=== PATIENT | female | born 1945 | race Caucasian/White ===

== ENCOUNTER → 2016-12-09 | Outpatient (CLI) | payer MEDICARE, BC ==
[~2016-12-09] MED LIST: AMLO10TA2 PO; CYCL1DRO OP; GADOBUTROL 7.5 MMOL/7.5 ML VIAL IV ONE; NABU500T PO; ROPI1TAB PO; SULF500T36 PO; VALS1TAB22 PO
--- NOTE | 2016-12-09 15:05 | KCIC ---
MRI of the lumbar spine without and with contrast 12/09/2016 CLINICAL HISTORY: Low back pain for the last 10 days post lifting injury. History of previous lumbar spine surgery. Technique: Unenhanced T1-weighted and T2-weighted sagittal and axial and inversion recovery sagittal images of the lumbar spine were obtained. After the intravenous administration of 7.5 cc of Gadavist, enhanced T1-weighted sagittal and axial images of the lumbar spine were obtained. FINDINGS: Minimal S-shaped curvature of the thoracolumbar spine is seen. Mild to moderate anterolisthesis of L4 in relation to L5 is noted. Degenerative signal changes are seen involving all of the disks of the lumbar spine. Degenerative signal changes are seen within the marrow surrounding these discs. Loss of height of the L3-4, L4-5 and L5-S1 discs is seen. The conus medullaris is normal morphology, position, and signal characteristics. At the L1-2 disc space there is a mild generalized disc bulge. Degenerative changes are seen involving the facet joints bilaterally. There is mild ligamentum flavum hypertrophy bilaterally. These findings when combined do not result in significant central spinal canal or neural foraminal stenosis. At the L2-3 disc space there is a mild generalized disc bulge. This is eccentric to the right. Degenerative changes are seen involving the facet joints bilaterally. There is mild to moderate ligamentum flavum hypertrophy bilaterally. These findings when combine result in mild central spinal canal stenosis. No neural foraminal stenosis is seen. At the L3-4 disc space there is a mild to moderate generalized disc bulge. Degenerative changes are seen involving the facet joints bilaterally. There is moderate ligamentum flavum hypertrophy bilaterally. There is prominence of the posterior epidural fat. These findings when combined result in mild to moderate central spinal canal stenosis. Mild, left greater than right neural foraminal stenosis is seen. At the L4-5 disc space there is a moderate generalized disc bulge. This is eccentric to the left. Degenerative changes are seen involving the facet joints bilaterally. There is moderate ligamentum flavum hypertrophy bilaterally. These findings when combined with the anterolisthesis at this level result in mild central spinal canal stenosis. Mild left greater than right neural foraminal stenosis is seen. At the L5-S1 disc space the patient is status post right hemilaminotomy. There is a mild generalized disc bulge. Degenerative changes are seen involving the facet joints bilaterally. These findings do not result in significant central spinal canal or neural foraminal stenosis. IMPRESSION: 1. Post right hemilaminotomy at L5-S1. 2. The changes of degenerative disc disease are seen throughout the lumbar spine. These findings result in mild central spinal canal stenosis at L2-3 and L4-5. Mild to moderate central spinal canal stenosis is seen at L3-4. Mild left greater than right neural foraminal stenosis is seen at L3-4 and L4-5. Electronically signed by: Leonel Pryor MD (12/09/2016 3:01 PM) [facility]-[id number]
== END | disposition home or self-care (01) ==
LOC: KCIC MRI 12:05
PROVIDERS: ATTEND Family Medicine
DX: M48.061 Spinal stenosis, lumbar region without neurogenic claudication (principal); M51.36 Other intervertebral disc degeneration, lumbar region
CPT/HCPCS: 72158; 82565; A9585

== ENCOUNTER → 2016-12-17 | Outpatient (CLI) | payer MEDICARE, BC ==
[~2016-12-17] MED LIST changes: -GADOBUTROL 7.5 MMOL/7.5 ML VIAL IV ONE
--- NOTE | 2016-12-17 15:46 | KCIC ---
EXAM: Lumbar spine, flexion and extension views. HISTORY: Spondylolisthesis. Right lower extremity radiculopathy. COMPARISON: MRI dated 12/09/2016. FINDINGS: There is grade 1 anterolisthesis of L4 on L5 which measures 10 mm in neutral position increases to grade 2 anterolisthesis measuring 13 mm with flexion and does not change with extension. No additional significant listhesis or abnormal translation or motion is seen. There is degenerative endplate remodeling with disc space narrowing and osteophytosis primarily at L3-L4 and L5-S1. IMPRESSION: 1. Grade 1 anterolisthesis of L4 on L5 which increases to grade 2 anterolisthesis with flexion. 2. Degenerative change primarily at L3-L4 and L5-S1. Electronically signed by: Krysten Verma MD (12/17/2016 3:43 PM) [facility]-KCIC1
== END | disposition home or self-care (01) ==
LOC: KCIC 15:09
PROVIDERS: ATTEND Neurological Surgery
DX: M43.16 Spondylolisthesis, lumbar region (principal); M51.16 Intervertebral disc disorders with radiculopathy, lumbar region
CPT/HCPCS: 72100

== ENCOUNTER → 2016-12-20 | Outpatient (CLI) | payer MEDICARE, BC ==
--- NOTE | 2016-12-20 15:22 | KCIC ---
Bone Densitometry History: Postmenopausal. Findings: Bone Densitometry was performed with dual photon absorption of the lumbar spine and left proximal femur. Lumbar Spine: Bone density is 1.092 g/cm2 for L1-L4. T-score is 0.4. Z-score is 2.6. Left total femur: Bone density is 0.836 g/cm2. T-score is -0.9. Z-score is 0.7. IMPRESSION: Bone mineral densities of the lumbar spine and left femur are normal. World Health Organization definition of osteoporosis and osteopenia for women: normal equals T score at or above -1.0 standard deviations; osteopenia equals T score between -1.0 and -2.5 standard deviations; osteoporosis equals T score at or below -2.5 standard deviations. Electronically signed by: Sukumar Vargas MD (12/20/2016 3:19 PM) [id number]
--- NOTE | 2016-12-30 15:01 | KCIC ---
DATE: December 20, 2016 EXAM: MAMMO JOANNE SCREENING BILATERAL HISTORY: Screening study. COMPARISON: December 15, 2015 performed at [facility]. This study was interpreted with the benefit of Computerized Aided Detection (CAD). 2-D digital mammographic views of both breasts were performed in the CC and MLO projections. 3-D digital tomosynthesis of both breasts were performed in the CC and MLO projections and reviewed on a computer workstation. FINDINGS: The breast parenchyma is scattered and mildly dense. There is a small 3 mm nodule within the retroareolar region of the left breast at the 4:00 position. Recommend sonography of the lower outer quadrant of left breast. There are no dominant masses, suspicious microcalcifications or evidence of architectural distortion. IMPRESSION: Nodule of the left breast. Sonography is recommended. BI-RADS CATEGORY: 0 INCOMPLETE: NEEDS ADDITIONAL IMAGING EVALUATION AND/OR PRIOR MAMMOGRAMS FOR COMPARISON. RECOMMENDED FOLLOW-UP: ADD ADDITIONAL IMAGING PQRS compliance statement: Patient information was entered into a reminder system with a target due date now for the next imaging study. Mammography is a sensitive method for finding small breast cancers, but it does not detect them all and is not a substitute for careful clinical examination. A negative mammogram does not negate a clinically suspicious finding and should not result in delay in biopsying a clinically suspicious abnormality. "Our facility is accredited by the [employer] Mammography Program." The patient's breast density may affect the ability of mammography to detect breast cancer. There are 4 categories of breast density, A, B, C and D. Breast density A means that most of the breast tissue is replaced with adipose tissue and therefore is not dense. Breast density B means that the breast tissue is mildly dense and scattered. Breast density C means that the breast tissue is heterogeneously dense. Breast density D means that the breast tissue is very dense. Breast densities especially C and D may decrease the sensitivity of mammography to detect breast cancer. Therefore, the patient may benefit from 3-D breast mammography (3D breast tomography) as a part of their screening mammogram. Insurance may or may not pay for this additional imaging. The patient's breast density based on today's mammogram is category B.
== END | disposition home or self-care (01) ==
LOC: KCIC MAMMO 13:40
PROVIDERS: ATTEND Family Medicine
DX: Z78.0 Asymptomatic menopausal state (principal); Z12.31 Encounter for screening mammogram for malignant neoplasm of breast
CPT/HCPCS: 77063; 77080; G0202; 77067

== ENCOUNTER → 2017-01-02 | Outpatient (CLI) | payer MEDICARE, BC ==
--- NOTE | 2017-01-02 11:20 | RAD ---
EXAM: Left breast ultrasound. HISTORY: Nodule on mammographic screening. Sonography is requested. COMPARISON: 12/20/2016, 12/10/2015. FINDINGS: Sonographic evaluation of the left periareolar inferior breast was performed at the site of mammographic concern. There is no suspicious sonographic finding. There is no correlate for the small mammographic nodule. A stable correlate is suspected on the prior mammogram. IMPRESSION: 1. BI-RADS Category 3: Probably benign findings. 2. Recommend 6 month follow-up left diagnostic mammography to confirm stability of a small left lateral periareolar nodule without sonographic correlate.
== END | disposition home or self-care (01) ==
LOC: KCIC US 10:30
PROVIDERS: ATTEND Family Medicine
DX: R92.8 Other abnormal and inconclusive findings on diagnostic imaging of breast (principal)
CPT/HCPCS: 76641

== ENCOUNTER → 2017-01-27 | Outpatient (CLI) | payer MEDICARE, BC ==
[~2017-01-27] MED LIST changes: +ASPI-482 PO; +CALC600T4 PO; +DIPH50CA59 PO; +DOCU-109 PO; +GUAI600T47 PO; +MULT-245 PO; +OMEG1CAP38 PO; +OXYC1TAB7 PO; +POLY119P4 PO
[2017-01-27 14:57] LABS: BASO % 1 % (0-3); EOS % 3 % (0-3); HEMOGLOBIN 12.1 g/dL (12.0-15.5); LYMPH # 1.3 x10^3/uL (1.0-4.8); LYMPH % 24 % (24-48); MEAN CORPUSCULAR HEMOGLOBIN 29 pg (25-35); MEAN CORPUSCULAR HGB CONC 33 g/dL (31-37); MEAN CORPUSCULAR VOLUME 87 fL (79-100); MONO % 11 % (0-9); NEUT % 62 % (31-73); PLATELET COUNT 312 x10^3/uL (140-400); RED BLOOD COUNT 4.26 x10^6/uL (3.50-5.40); RED CELL DISTRIBUTION WIDTH 13.4 % (11.5-14.5); WHITE BLOOD COUNT 5.3 x10^3/uL (4.0-11.0)
[2017-01-27 15:08] LABS: PROTHROMBIN TIME PATIENT 12.7 SEC (11.7-14.0)
[2017-01-27 15:22] LABS: ALBUMIN 3.8 g/dL (3.4-5.0); ALBUMIN/GLOBULIN RATIO 1.2 (1.0-1.7); CALCIUM 9.2 mg/dL (8.5-10.1); CREATININE 0.9 mg/dL (0.6-1.0); GFR 61.9; POTASSIUM 3.3 mmol/L (3.5-5.1); TOTAL BILIRUBIN 0.5 mg/dL (0.2-1.0); TOTAL PROTEIN 7.1 g/dL (6.4-8.2)
--- NOTE | 2017-01-27 15:26 | EKG ---
[facility] [address] [place] [address] Test Date: 2017-01-27 Test Time: 15:25:23 Pat Name: SANDIP ALLRED Department: Room: Gender: F Skein Yarn Dyer: : 1945 Requested By: DANELLE FORBES Order Number: [id number] Reading MD: Samuel Rojas MD Measurements Intervals [place] Rate: 69 P: 31 NC: 212 QRS: 33 QRSD: 82 T: 16 QT: 396 QTc: 426 Interpretive Statements SINUS RHYTHM Electronically Signed On 01-28-2017 15:13:58 [employer] by Samuel Rojas MD
== END | disposition home or self-care (01) ==
LOC: SURGPAT 14:21
PROVIDERS: ATTEND Neurological Surgery
DX: Z01.818 Encounter for other preprocedural examination (principal); M43.16 Spondylolisthesis, lumbar region; M48.062 Spinal stenosis, lumbar region with neurogenic claudication
CPT/HCPCS: 36415; 80053; 85025; 85610; 85730; 87641; 93005

== ENCOUNTER 2017-02-03 08:01 | Inpatient (IN) | payer MEDICARE, BC ==
--- NOTE | 2017-01-31 15:10 | PREOP HP ---
DATE OF SERVICE: 02/03/2017 HISTORY OF PRESENT ILLNESS: The patient is a pleasant 71-year-old woman who is having difficulty with low back pain and pain which radiates into her right leg. That pain can be in the anterior, lateral, posterior leg. She notes numbness and tingling in the toes of her right foot. When she walks, she feels there is heaviness in her right leg and foot. The problem started on 11/28/2016 after lifting grocery bags. She rates her pain as a 5/10. Walking increases her pain. The problem is worse in the evenings. She is taking nabumetone. When I saw her last, there was dorsiflexion and weakness on the right side. I studied her with flexion, extension views on which there was motion. Because of this, I had lumbar myelogram and post-myelogram CT scan performed in flexion and extension views. PAST MEDICAL HISTORY: Hypertension, psychiatric care and RA. PAST SURGICAL HISTORY: Lumbar surgery by [facility] in 1997. FAMILY HISTORY: Adopted. No known history. SOCIAL HISTORY: Retired. . Exercise daily. Denies substance abuse. Denies tobacco use. Drinks coffee daily. ALLERGIES: No known drug allergies. CURRENT MEDICATIONS: Valsartan, amlodipine, , nabumetone, ropinirole, Restasis, aspirin, calcium, multivitamin, omega 3, MiraLax, , Claritin. REVIEW OF SYSTEMS: A 12-point review of systems was obtained and noncontributory except that mentioned above. PHYSICAL EXAMINATION: NEUROSURGERY EXAMINATION: GENERAL APPEARANCE: Alert, pleasant, in no acute distress. HEAD: Normocephalic and atraumatic. SKIN: Warm and dry. MUSCULOSKELETAL: Lumbar paraspinal muscle bulk is normal, restricted range of motion of lumbar spine, [id number] tenderness of the lower lumbar spine with palpation, normal range of motion of the lower extremities bilaterally. EXTREMITIES: No clubbing, cyanosis or edema. NEUROLOGIC: Alert and oriented x 3, normal recent and remote memory. Strength 5/5 in bilateral lower extremities except for 4+/5 right foot dorsiflexion and right EHL, sensory was intact to light touch in bilateral lower extremities except for decreased across the dorsum of her right foot, reflexes were present and symmetric in lower extremities bilaterally, negative straight leg raising bilaterally. IMAGING REVIEWED: I reviewed the lumbar myelogram and post-myelogram CT scan. On that study, there was a sacralized L5-S1. There was a grade 1 anterolisthesis at L4-L5 level, exaggerated in flexion and associated with bilateral L5 nerve root truncation and swelling. There is also evidence of nerve root swelling at L3-L4 involving the L4 roots. Seen on the CT portion, there was a grade 1 anterolisthesis at a true L4-L5 level which is associated with central spinal and lateral recess and foraminal stenosis. There is also moderately severe central spinal and bilateral foraminal stenosis at L3-L4. ASSESSMENT: 1. Spondylolisthesis, lumbar region. 2. Spinal stenosis, lumbar region with neurogenic claudication. PLAN: She has severe as well as right foot dorsiflexion weakness. There is motion at L4-L5 on imaging studies as well as a significant stenosis at that level and as well at L3-L4. I recommended a right-sided microdecompression L3-L4 combined with a decompression L4-L5 and an instrumented lumbar fusion. I would also perform an anterior diskectomy and interbody fusion at that level. I discussed surgery with her. We spoke about the surgery rationale, technique, risks, and expected postoperative course. She understands. She would like to go ahead. We will make the arrangements. DANELLE FORBES MD DR: SOLO/ada JOB#: [id number] / [id number]
[~2017-02-03] VITALS: Ht 172.7 cm; Wt 84.8 kg
[2017-02-03] VITALS (8 sets, daily range): BP systolic 97–142; BP diastolic 54–72
[~2017-02-03 08:01] MED LIST changes: +BUPIVAC MPF-EPI 0.5%-1:200000 30 ML VIAL. ONE; -DOCU-109 PO; +GELATIN SPONGE SIZE 100. ONE; -GUAI600T47 PO; +IV RINGERS,LACTATED 1000ML 1,000 ML IV SCH; +KETOROLAC 60 MG/2 ML INJ FOR OR. ONE; +LIDOCAINE 1% PF 2 ML VIAL. ID PRN; +ONDANSETRON PF 4 MG/2 ML VIAL. IV PRN; -OXYC1TAB7 PO; +PROCHLORPERAZINE 10 MG/2 ML VIAL. IV PRN; +THROMBIN TOPICAL 20,000 UNIT SPRAY.SYRN KIT TP ONE; +fentaNYL PF VIAL 100 MCG/2 ML VIAL IV PRN
[2017-02-03] MEDS ORDERED: GUAI600T47 PO (08:42)
[2017-02-03] MEDS ORDERED: PHENYLEPHRINE in 0.9% NACL PF 1 MG/10 ML DISP.SYRIN. IV ONE (10:37)
[2017-02-03] MEDS ORDERED: fentaNYL PF VIAL 100 MCG/2 ML VIAL ONE ×2 (10:38→16:53)
[2017-02-03] MEDS ORDERED: MIDAZOLAM HCL/PF 2 MG/2 ML VIAL. ONE (10:38)
[2017-02-03] MEDS ORDERED: ePHEDrine PF IN SALINE 50 MG/5 ML DISP.SYRIN IV ONE (10:38)
[2017-02-03] MEDS ORDERED: ROCURONIUM 50 MG/5 ML VIAL. ONE (10:39)
[2017-02-03] MEDS ORDERED: DEXAMETHASONE SOD PHOS 20 MG/5 ML VIAL. ONE (10:39)
[2017-02-03] MEDS ORDERED: PROPOFOL 50 ML IV ONE ×2 (10:39→16:53)
[2017-02-03] MEDS ORDERED: REMIFENTANIL 2 MG VIAL. IV ONE ×2 (10:39→15:21)
[2017-02-03] MEDS ORDERED: ONDANSETRON PF 4 MG/2 ML VIAL. ONE (10:39)
[2017-02-03] MEDS ORDERED: PROPOFOL 20 ML IV ONE (10:39)
[2017-02-03] MEDS ORDERED: PROPOFOL 100 ML IV ONE (10:40)
[2017-02-03] MEDS: BACITRACIN 50,000 UNIT in IV NORMAL SALINE 1000ML BAG 1,000 ML IRR ONE ×2 (11:49→13:16)
[2017-02-03] MEDS ORDERED: NEOSTIGMINE METHYLSULFATE 5 MG/5 ML SYRINGE. ONE (12:27)
[2017-02-03] MEDS ORDERED: GLYCOPYRROLATE 1 MG/5 ML VIAL. ONE (12:27)
[2017-02-03] MEDS ORDERED: DESFLURANE > 120 MINUTES IH ONE (12:36)
[2017-02-03] MEDS ORDERED: PHENYLEPHRINE 10 MG/ML VIAL. ONE (12:40)
[2017-02-03] MEDS ORDERED: oxyCODONE/APAP 5/325 1 TAB TABLET PO PRN (16:45)
[2017-02-03] MEDS ORDERED: fentaNYL PF VIAL 100 MCG/2 ML VIAL IV PRN ×2 (16:45)
[2017-02-03] MEDS ORDERED: 0.9 % SODIUM CHLORIDE 10 ML DISP.SYRIN. IV PRN (16:45)
[2017-02-03] MEDS ORDERED: CALCIUM CARBONATE 500 MG TAB.CHEW PO PRN (16:45)
[2017-02-03] MEDS ORDERED: diphenhydrAMINE 50 MG/ML VIAL IV PRN (16:45)
[2017-02-03] MEDS ORDERED: diphenhydrAMINE HCL 25 MG CAPSULE PO PRN (16:45)
[2017-02-03] MEDS ORDERED: ONDANSETRON PF 4 MG/2 ML VIAL. IV PRN (16:45)
[2017-02-03] MEDS ORDERED: MAGNESIUM HYDROXIDE 2,400 MG/30 ML ORAL.SUSP. PO PRN (16:45)
[2017-02-03] MEDS ORDERED: ACETAMINOPHEN 325 MG TABLET. PO PRN (16:45)
[2017-02-03] MEDS ORDERED: MAG HYDROX/ALUMINUM HYD/SIMETH 30 ML ORAL.SUSP PO PRN (16:45)
[2017-02-03] MEDS ORDERED: POTASSIUM CL 20MEQ D5-0.45NACL 1,000 ML IV SCH (18:00)
[2017-02-03] MEDS: MORPHINE SULFATE 2 MG/ML DISP.SYRIN. IV PRN ×2 (18:20→18:44)
[2017-02-03] MEDS: fentaNYL PF VIAL 100 MCG/2 ML VIAL IV PRN ×2 (18:32→18:55)
[2017-02-03] MEDS: HYDROmorphone 2 MG/ML VIAL IV PRN ×4 (19:00→19:31)
[2017-02-03] MEDS: DOCUSATE SODIUM 100 MG CAPSULE. PO SCH (21:25)
[2017-02-03] MEDS: rOPINIRole 1 MG TABLET. PO SCH (21:25)
[2017-02-03] MEDS: diphenhydrAMINE HCL 25 MG CAPSULE PO SCH (21:25)
[2017-02-03] MEDS: METHOCARBAMOL 750 MG TABLET PO SCH (21:25)
[2017-02-03] MEDS: oxyCODONE/APAP 5/325 1 TAB TABLET PO PRN (21:36)
[2017-02-03] MEDS ORDERED: ceFAZolin SODIUM 1 GM in IV DEXTROSE 5% 50 ML IV SCH (22:00)
[2017-02-04] MEDS: ceFAZolin SODIUM IV Push 1 GM VIAL. IVP SCH ×3 (01:19→18:09)
[2017-02-04] MEDS: oxyCODONE/APAP 5/325 1 TAB TABLET PO PRN ×4 (02:46→19:54)
[2017-02-04 03:00] VITALS: BP 119/53
[2017-02-04 07:28] VITALS: BP 113/63
[2017-02-04] MEDS: MULTIVITAMIN with MINERAL TABLET. PO SCH (08:35)
[2017-02-04] MEDS: rOPINIRole 1 MG TABLET. PO SCH ×3 (08:35→19:52)
[2017-02-04] MEDS: OMEGA-3 FATTY ACIDS/FISH OIL 1,000 MG CAPSULE. PO SCH (08:35)
[2017-02-04] MEDS: METHOCARBAMOL 750 MG TABLET PO SCH (08:35)
[2017-02-04] MEDS: CALCIUM CARBONATE 500 MG TABLET PO SCH ×3 (08:36→18:08)
[2017-02-04] MEDS: DOCUSATE SODIUM 100 MG CAPSULE. PO SCH ×2 (08:36→21:11)
[2017-02-04] MEDS: ASPIRIN ENTERIC COATED 81 MG TABLET.DR. PO SCH (08:36)
[2017-02-04] MEDS: cycloSPORINE 0.05% OPTH 1 DROP DROPERETTE OU SCH (08:47)
[2017-02-04] MEDS: amLODIPine BESYLATE 10 MG TABLET PO SCH (09:00)
--- NOTE | 2017-02-04 10:10 | PDOC ---
PROGRESS NOTES Subjective Subjective POD #1 up in chair leg pain improved back/ incisional pain controlled with medication has ambulated in lindsay with RN Objective Objective Vital Signs Date Time Temp Pulse Resp B/P (MAP) Pulse Ox O2 Delivery O2 Flow Rate FiO2 02/04/17 08:05 Room Air 02/04/17 07:28 97.5 78 18 113/63 (80) 98 97.5 02/03/17 22:45 2.0 Intake and Output 02/04/17 07:00 Intake Total 2490 ml Output Total 400 ml Balance 2090 ml Intake Oral 440 ml IV Total 2050 ml Output Urine Total 300 ml Estimated Blood Loss 100 ml Physical Exam General: Alert, Oriented X3, Cooperative MUSCULOSKELETAL: Other (CABEZAS) Skin: Other (dressing Dry,Intact , flat) Plan Plan of Care encouraged increased activity as tolerated PT Brace ordered possible dc later today Comment Review of Relevant I have reviewed the following items travis (where applicable) has been applied. Medications Current Medications Ondansetron HCl (Zofran) 4 mg PRN Q6HRS PRN IV NAUSEA/VOMITING; Start at 07:00; Stop 02/04/17 at 06:59; Status DC Fentanyl Citrate (Fentanyl 2ml Vial) 25 mcg PRN Q5MIN PRN IV MILD PAIN; Start 02/03/17 at 07:00; Stop 02/04/17 at 06:59; Status DC Fentanyl Citrate (Fentanyl 2ml Vial) 50 mcg PRN Q5MIN PRN IV MODERATE PAIN Last administered on 02/03/17 18:55; Start 02/03/17 at 07:00; Stop 02/04/17 at 06:59; Status DC Morphine Sulfate 1 mg PRN Q10MIN PRN IV SEVERE PAIN Last administered on 18:44; Start 02/03/17 at 07:00; Stop 02/04/17 at 06:59; Status DC Ringer's Solution 1,000 ml @ 0 mls/hr Q0M IV Last administered on 02/03/17 08:54; Start 02/03/17 at 07:00; Stop 02/03/17 at 18:59; Status DC Lidocaine HCl (Xylocaine-Mpf 1% Vial) 2 ml PRN 1X PRN ID PRIOR TO IV START; Start 02/03/17 at 07:00; Stop 02/04/17 at 06:59; Status DC Hydromorphone HCl (Dilaudid) 0.5 mg PRN Q10MIN PRN IV SEV PAIN, Second choice Last administered on 02/03/17 19:21; Start 02/03/17 at 07:00; Stop 02/04/17 at 06:59; Status DC Prochlorperazine Edisylate (Compazine) 5 mg PACU PRN PRN IV NAUSEA, MRX1 Last administered on 02/03/17 18:32; Start 02/03/17 at 07:00; Stop 02/04/17 at 06 :59; Status DC Bacitracin 46995 unit/Sodium Chloride 1,000 ml @ 1,000 mls/hr 1X PERIOP ONCE IRR Last administered on 02/03/17 13:16; Start 02/03/17 at 08:00; Stop 01/10 at 08:59; Status DC Cefazolin Sodium/ Dextrose 50 ml @ 100 mls/hr 1X PREOP PRN IV PRIOR TO SURGERY Last administered on 02/03/17 16:30; Start 02/03/17 at 08:00; Stop 02/03/17 at 19:53; Status DC Gelatin (Gelfoam Size 100) 1 each STK-MED ONCE .ROUTE Last administered on 13:16; Start 02/03/17 at 07:04; Stop 02/03/17 at 07:05; Status DC Bupivacaine HCl/ Epinephrine Bitart (Sensorcain-Mpf Epi 0.5%-1:170901) 30 ml STK -MED ONCE .ROUTE Last administered on 02/03/17 13:16; Start 02/03/17 at 07: 04; Stop 02/03/17 at 07:05; Status DC Ketorolac Tromethamine (Toradol For Or Only) 60 mg STK-MED ONCE .ROUTE Last administered on 02/03/17 13:16; Start 02/03/17 at 07:04; Stop 02/03/17 at 07 :05; Status DC Thrombin 20,000 unit STK-MED ONCE TP Last administered on 02/03/17 13:16; Start 02/03/17 at 07:04; Stop 02/03/17 at 07:05; Status DC Phenylephrine HCl 1 mg STK-MED ONCE IV ; Start 02/03/17 at 10:37; Stop at 10:38; Status DC Ephedrine Sulfate (ePHEDrine PF IN SALINE SYRINGE) 50 mg STK-MED ONCE IV ; Start 02/03/17 at 10:38; Stop 02/03/17 at 10:39; Status DC Midazolam HCl (Versed) 2 mg STK-MED ONCE .ROUTE ; Start 02/03/17 at 10:38; Stop 02/03/17 at 10:39; Status DC Fentanyl Citrate (Fentanyl 2ml Vial) 100 mcg STK-MED ONCE .ROUTE ; Start at 10:38; Stop 02/03/17 at 10:39; Status DC Propofol 20 ml @ As Directed STK-MED ONCE IV ; Start 02/03/17 at 10:39; Stop 02/03/17 at 10:40; Status DC Propofol 50 ml @ As Directed STK-MED ONCE IV ; Start 02/03/17 at 10:39; Stop 02/03/17 at 10:40; Status DC Dexamethasone Sodium Phosphate (Decadron) 20 mg STK-MED ONCE .ROUTE ; Start 01/10 at 10:39; Stop 02/03/17 at 10:40; Status DC Ondansetron HCl (Zofran) 4 mg STK-MED ONCE .ROUTE ; Start 02/03/17 at 10:39; Stop 02/03/17 at 10:40; Status DC Remifentanil HCl (Ultiva) 2 mg STK-MED ONCE IV ; Start 02/03/17 at 10:39; Stop 02/03/17 at 10:40; Status DC Rocuronium [place] (Zemuron) 50 mg STK-MED ONCE .ROUTE ; Start 02/03/17 at 10: 39; Stop 02/03/17 at 10:40; Status DC Propofol 100 ml @ As Directed STK-MED ONCE IV ; Start 02/03/17 at 10:40; Stop 02/03/17 at 10:41; Status DC Neostigmine Methylsulfate 5 mg STK-MED ONCE .ROUTE ; Start 02/03/17 at 12:27; Stop 02/03/17 at 12:28; Status DC Glycopyrrolate (Robinul) 1 mg STK-MED ONCE .ROUTE ; Start 02/03/17 at 12:27; Stop 02/03/17 at 12:28; Status DC Desflurane (Suprane) 90 ml STK-MED ONCE IH ; Start 02/03/17 at 12:36; Stop 01/10 at 12:37; Status DC Phenylephrine HCl (Mario-Synephrine Inj) 10 mg STK-MED ONCE .ROUTE ; Start at 12:40; Stop 02/03/17 at 12:41; Status DC Remifentanil HCl (Ultiva) 2 mg STK-MED ONCE IV ; Start 02/03/17 at 15:21; Stop 02/03/17 at 15:22; Status DC Cefazolin Sodium/ Dextrose 50 ml @ As Directed STK-MED ONCE IV ; Start at 15:53; Stop 02/03/17 at 15:54; Status DC Amlodipine Besylate (Norvasc) 10 mg DAILY PO ; Start 02/04/17 at 09:00 Aspirin (Ecotrin) 81 mg DAILY PO Last administered on 02/04/17 08:36; Start 02/04/17 at 09:00 Cyclosporine (Restasis) 0.05 drop DAILY OU Last administered on 02/04/17 08: 47; Start 02/04/17 at 09:00 Guaifenesin (Mucinex) 1,200 mg BID PO Last administered on 02/04/17 08:36; Start 02/03/17 at 21:00 Polyethylene Glycol (miraLAX PACKET) 17 gm DAILY PO ; Start 02/04/17 at 09:00 Ropinirole HCl (Requip) 1 mg TID PO Last administered on 02/04/17 08:35; Start 02/03/17 at 21:00 Calcium Carbonate/ Glycine (Oscal) 500 mg TIDWMEALS PO Last administered on 08:36; Start 02/04/17 at 08:00 Diphenhydramine HCl (Benadryl) 50 mg QHS PO Last administered on 02/03/17 21: 25; Start 02/03/17 at 21:00 Multivitamins (Thera M Plus) 1 tab DAILY PO Last administered on 02/04/17 08: 35; Start 02/04/17 at 09:00 Fish Oil (Fish Oil) 1,000 mg DAILY PO Last administered on 02/04/17 08:35; Start 02/04/17 at 09:00 Fentanyl Citrate (Fentanyl 2ml Vial) 50 mcg PRN Q2HR PRN IV PAIN; Start at 16:45 Fentanyl Citrate (Fentanyl 2ml Vial) 25 mcg PRN Q2HR PRN IV PAIN; Start at 16:45 Acetaminophen (Tylenol) 650 mg PRN Q6HRS PRN PO MILD PAIN / TEMP; Start at 16:45 Al Hydroxide/Mg Hydroxide (Mylanta Plus Xs) 30 ml PRN Q3HRS PRN PO HEARTBURN / GAS; Start 02/03/17 at 16:45 Calcium Carbonate/ Glycine (Tums) 500 mg PRN Q3HRS PRN PO INDIGESTION; Start 02/03/17 at 16:45 Diphenhydramine HCl (Benadryl) 25 mg PRN Q6HRS PRN PO ITCHING; Start 02/03/17 at 16:45 Diphenhydramine HCl (Benadryl) 25 mg PRN Q6HRS PRN IV ITCHING; Start 02/03/17 at 16:45 Sodium Chloride (Normal Saline Flush) 3 ml QSHIFT PRN IV AFTER MEDS AND BLOOD DRAWS; Start 02/03/17 at 16:45 Potassium Chloride/Dextrose/ Sod Cl 1,000 ml @ 75 mls/hr [id number] IV Last administered on 02/04/17 03:13; Start 02/03/17 at 18:00 Oxycodone/ Acetaminophen (Percocet 5/325) 1 tab PRN Q4HRS PRN PO MILD PAIN, 1ST CHOICE Last administered on 02/04/17 04:07; Start 02/03/17 at 16:45 Oxycodone/ Acetaminophen (Percocet 5/325) 2 tab PRN Q4HRS PRN PO MODERATE PAIN , SEVERE PAIN; Start 02/03/17 at 16:45 Methocarbamol (Robaxin) 750 mg TID PO Last administered on 02/04/17 08:35; Start 02/03/17 at 21:00; Stop 02/04/17 at 09:28; Status DC Docusate Sodium (Colace) 100 mg BID PO Last administered on 02/04/17 08:36; Start 02/03/17 at 21:00 Magnesium Hydroxide (Milk Of Magnesia) 2,400 mg PRN Q12HR PRN PO CONSTIPATION; Start 02/03/17 at 16:45 Ondansetron HCl (Zofran) 4 mg PRN Q6HRS PRN IV NAUESA, 1ST CHOICE; Start 02/03 at 16:45 Cefazolin Sodium 1 gm/Dextrose 50 ml @ 100 mls/hr Q8HRS IV ; Start 02/03/17 at 22:00; Stop 02/04/17 at 14:29; Status UNV Fentanyl Citrate (Fentanyl 2ml Vial) 100 mcg STK-MED ONCE .ROUTE ; Start at 16:53; Stop 02/03/17 at 16:54; Status DC Propofol 50 ml @ As Directed STK-MED ONCE IV ; Start 02/03/17 at 16:53; Stop 02/03/17 at 16:54; Status DC Cefazolin Sodium (Ancef) 1 gm Q8H IVP Last administered on 02/04/17 08:36; Start 02/04/17 at 00:00; Stop 02/04/17 at 16:01 Active Scripts Active Reported Mucinex (Guaifenesin) 600 Mg Tablet.er 2 Tab PO BID Unisom (Diphenhydramine Hcl) 50 Mg Capsule 50 Mg PO HS Miralax (Polyethylene Glycol 3350) 119 Gm Powder 1 Tbs PO DAILY [place] 3 Fish Oil Softgel ([place]-3 Fatty Acids/Fish Oil) 1 Each Capsule.dr 1 Each PO DAILY Multi Vitamin Daily (Multivitamin) 1 Each Tablet 1 Each PO DAILY Calcium (Calcium Carbonate) 600 Mg Tablet 600 Mg PO TID Aspir 81 (Aspirin) 81 Mg Tablet. 81 Mg PO DAILY Restasis (Cyclosporine) 1 Each Droperette 1 Each OP Requip (Ropinirole Hcl) 1 Mg Tablet 1 Mg PO TID Nabumetone 500 Mg Tablet Unknown Dose PO DAILY Sulfasalazine (Sulfasalazine) 500 Mg Tablet. 500 Mg PO Amlodipine Besylate 10 Mg Tablet 10 Mg PO DAILY Diovan Hct 320-25 Mg Tablet (Valsartan/Hydrochlorothiazide) 1 Each Tablet Unknown Dose PO DAILY Vitals/I & O Vital Sign - Last 24 Hours 02/03/17 02/03/17 02/03/1717 18:03 18:03 18:18 18:20 Temp 97.6 97.6 Pulse 95 82 Resp 18 14 14 B/P (MAP) 141/63 127/55 Pulse Ox 100 100 O2 Delivery Simple Mask Mask Simple Mask Room Air O2 Flow Rate 10 10 10 02/03/17 02/03/17 02/03/17 02/03/17 18:32 18:33 18:44 18:48 Pulse 90 73 Resp 14 14 14 12 B/P (MAP) 127/55 123/58 Pulse Ox 100 100 O2 Delivery Simple Mask Room Air O2 Flow Rate 10 02/03/17 02/03/17 02/03/17 02/03/17 18:55 19:00 19:03 19:12 Temp 97.6 97.6 Pulse 75 Resp 14 14 12 12 B/P (MAP) 115/54 Pulse Ox 95 O2 Delivery Nasal Cannula O2 Flow Rate 2 02/03/17 02/03/17 02/03/17 02/03/17 19:18 19:21 19:31 19:40 Temp 97.6 97.5 97.6 97.5 Pulse 80 88 Resp 14 14 14 18 B/P (MAP) 120/56 98/54 (69) Pulse Ox 94 96 O2 Delivery Nasal Cannula O2 Flow Rate 2.0 02/03/17 02/03/17 02/03/17 02/03/17 19:40 19:40 19:55 20:10 Temp 97.5 97.5 Pulse 99 80 85 Resp 18 16 B/P (MAP) 98/54 (69) 97/56 (70) 113/56 (75) Pulse Ox 96 89 90 O2 Delivery Nasal Cannula Nasal Cannula Nasal Cannula Nasal Cannula O2 Flow Rate 2.0 2.0 2.0 2.0 02/03/17 02/03/17 02/03/17 02/03/17 20:25 20:55 21:25 21:36 Pulse 75 82 83 Resp 18 B/P (MAP) 104/63 (77) 133/65 (87) 142/65 (90) Pulse Ox 90 91 90 94 O2 Delivery Nasal Cannula Nasal Cannula Nasal Cannula Nasal Cannula O2 Flow Rate 2.0 2.0 2.0 2.0 02/03/17 02/03/17 02/03/17 02/04/17 21:55 22:35 22:45 02:46 Pulse 89 72 Resp 18 18 B/P (MAP) 125/65 (85) 112/72 (85) Pulse Ox 90 98 96 O2 Delivery Nasal Cannula Nasal Cannula Room Air O2 Flow Rate 2.0 2.0 2.0 02/04/17 02/04/17 02/04/17 02/04/17 03:00 04:04 04:07 05:05 Temp 97.4 97.4 Pulse 66 Resp 18 18 16 B/P (MAP) 119/53 (75) Pulse Ox 96 96 96 O2 Delivery Room Air Room Air Room Air 02/04/17 02/04/17 07:28 08:05 Temp 97.5 97.5 Pulse 78 Resp 18 B/P (MAP) 113/63 (80) Pulse Ox 98 O2 Delivery Room Air Room Air Intake and Output 02/03/17 02/03/17 02/04/17 15:00 23:00 07:00 Intake Total 2050 ml 440 ml Output Total 400 ml Balance 1650 ml 440 ml DANELLE FORBES MD Feb 04, 2017 10:10
[2017-02-04 11:20] VITALS: BP 120/59
[2017-02-04 17:57] VITALS: BP 137/66
[2017-02-04 19:30] VITALS: BP 160/79
[2017-02-04] MEDS: POLYETHYLENE GLYCOL 3350 17 GM PACKET. PO SCH (20:10)
[2017-02-04] MEDS: diphenhydrAMINE HCL 25 MG CAPSULE PO SCH (21:12)
[2017-02-04 23:00] VITALS: BP 136/60
[2017-02-05] MEDS: oxyCODONE/APAP 5/325 1 TAB TABLET PO PRN ×3 (00:42→11:42)
[2017-02-05 02:06] VITALS: BP 153/68
[2017-02-05 06:51] VITALS: BP 155/76
[2017-02-05] MEDS: DOCUSATE SODIUM 100 MG CAPSULE. PO SCH (08:01)
[2017-02-05] MEDS: OMEGA-3 FATTY ACIDS/FISH OIL 1,000 MG CAPSULE. PO SCH (08:02)
[2017-02-05] MEDS: ASPIRIN ENTERIC COATED 81 MG TABLET.DR. PO SCH (08:02)
[2017-02-05] MEDS: CALCIUM CARBONATE 500 MG TABLET PO SCH ×2 (08:02→11:42)
[2017-02-05] MEDS: amLODIPine BESYLATE 10 MG TABLET PO SCH (08:03)
[2017-02-05] MEDS: POLYETHYLENE GLYCOL 3350 17 GM PACKET. PO SCH (08:07)
[2017-02-05] MEDS: cycloSPORINE 0.05% OPTH 1 DROP DROPERETTE OU SCH (08:07)
[2017-02-05] MEDS: rOPINIRole 1 MG TABLET. PO SCH (08:08)
[2017-02-05] MEDS: MULTIVITAMIN with MINERAL TABLET. PO SCH (09:00)
--- NOTE | 2017-02-05 11:28 | DISCH ---
DISCHARGE INSTRUCTIONS Condition on Discharge Condition on Discharge: Stable Activity After Discharge Activity Instructions for Disc: Activity as tolerated, Avoid exertion Other activity instructions: no driving for a week Bathing Instructions: Shower-keep dressing dry Lifting Instructions after Dis: No heavy lifting, No pulling or pushing, Do not lift >10 pounds Diet after Discharge Additional Diet Restrictions: resume home diet Wound Incision Care Wound/Incision Care: Ice to area for comfort Other wound/incision instructi: may remove dressing in 48 hrs if dry then may shower- no soaking Contacting the after DC Call your doctor for: Concerns you may have Follow-Up Follow up with: Dr. Forbes's nurse in 2 weeks [phone] DANELLE FORBES MD Feb 05, 2017 11:28
[2017-02-05 11:29] VITALS: BP 159/81
[2017-02-05] MEDS ORDERED: OXYC1TAB7 PO (11:30)
[2017-02-05] MEDS ORDERED: DOCU-109 PO (11:30)
--- NOTE | 2017-02-05 15:58 | PATHOLOGY ---
PATHOLOGY REPORT * * * * * * * * FINAL DIAGNOSIS: Segments of fibrocartilaginous and fibroadipose tissue and bone, lumbar decompression and disc: - Degenerative changes of fibrocartilaginous tissue. COMMENT: There is no evidence of an acute inflammatory process or malignancy. (JPM:; 02/05/2017) REPORT ELECTRONICALLY SIGNED BY: Tank Correa M.D. DATE/TIME: 02/05/2017 15:58 * * * * * * * * GROSS PATHOLOGY: Received in formalin labeled "Martin Rogers, lumbar decompression and disc," are multiple segments of yellow, garza and white, rubbery and gritty tissue measuring 6.2 x 4.3 x 1.8 cm in aggregate dimensions, containing small fragments of bone. The tissue is submitted representatively in cassette A1, following decalcification. (TSD; 02/04/2017) INITIAL CPT CODE(S): A; 39013, 52665 Professional services [place] [place] [address] Technical services performed by [facility] at [address] [place] [address]. SPECIMEN(S) RECEIVED: A.Lumbar decompression and disc CLINICAL HISTORY: Lumbar spondylolisthesis, stenosis with neurogenic claudication PATIENT: MARTIN ROGERS /AGE: 1 1945 (Age: 71) PATIENT #: [id number] ALT CASE #: SPECIMEN COLLECTION DATE: 02/03/2017 SPECIMEN RECEIVED DATE: 02/04/2017 [facility] - [address] [place] [address] - PHONE: [phone] * * * END OF REPORT * * *
== END 2017-02-05 12:15 | disposition home or self-care (01) | DRG 460 ==
LOC: OPSVCIP 08:01 → 4 SOUTHEST 19:50
PROVIDERS: ADMIT Neurological Surgery; ATTEND Neurological Surgery
PROC: 0ST20ZZ Resection of Lumbar Vertebral Disc, Open Approach (ICD-10-PCS; 2017-02-03)
PROC: 01NB0ZZ Release Lumbar Nerve, Open Approach (ICD-10-PCS; 2017-02-03)
PROC: 4A11X4G Monitoring of Peripheral Nervous Electrical Activity, Intraoperative, External Approach (ICD-10-PCS; 2017-02-03)
PROC: 0SG00AJ Fusion of Lumbar Vertebral Joint with Interbody Fusion Device, Posterior Approach, Anterior Column, Open Approach (ICD-10-PCS; principal; 2017-02-03 10:30)
DX: M48.062 Spinal stenosis, lumbar region with neurogenic claudication (principal); I10 Essential (primary) hypertension; M43.16 Spondylolisthesis, lumbar region; Z88.8 Allergy status to other drugs, medicaments and biological substances
CPT/HCPCS: 36415; 76000; 86850; 86900; 86901; 88304; 88311; C1713; J0690; J0780; J1100; J1170; J1885; J2250; J2270; J2370; J2405; J2704; J2710; J3010; J3490; J7030; J7120; Q0163; 97110; 97116

== ENCOUNTER → 2017-04-29 | Outpatient (CLI) | payer MEDICARE, BC | END | disposition home or self-care (01) | LOC: KCIC 08:42 | DX: M43.26 Fusion of spine, lumbar region (principal); M47.896 Other spondylosis, lumbar region | CPT/HCPCS: 72100 ==

== ENCOUNTER → 2017-07-02 | Outpatient (CLI) | payer MEDICARE, BC | END | disposition home or self-care (01) | LOC: KCIC MAMMO 12:19 | DX: N63.20 Unspecified lump in the left breast, unspecified quadrant (principal) | CPT/HCPCS: 77065; G0279 ==

== ENCOUNTER → 2017-09-24 | Outpatient (CLI) | payer MEDICARE, BC | END | disposition home or self-care (01) | LOC: KCIC 12:12 | DX: M17.11 Unilateral primary osteoarthritis, right knee (principal); M23.41 Loose body in knee, right knee; I10 Essential (primary) hypertension | CPT/HCPCS: 73564 ==

== ENCOUNTER → 2018-01-12 | Outpatient (CLI) | payer MEDICARE, BC ==
[~2018-01-12] MED LIST changes: -AMLO10TA2 PO; +AMLO10TA6 PO; -BUPIVAC MPF-EPI 0.5%-1:200000 30 ML VIAL. ONE; +DOCU-109 PO; -GELATIN SPONGE SIZE 100. ONE; +GUAI600T47 PO; -IV RINGERS,LACTATED 1000ML 1,000 ML IV SCH; -KETOROLAC 60 MG/2 ML INJ FOR OR. ONE; -LIDOCAINE 1% PF 2 ML VIAL. ID PRN; -ONDANSETRON PF 4 MG/2 ML VIAL. IV PRN; +OXYC1TAB7 PO; -PROCHLORPERAZINE 10 MG/2 ML VIAL. IV PRN; -THROMBIN TOPICAL 20,000 UNIT SPRAY.SYRN KIT TP ONE; -fentaNYL PF VIAL 100 MCG/2 ML VIAL IV PRN
--- NOTE | 2018-01-12 13:40 | KCIC ---
DATE: 01/12/2018 EXAM: MAMMO JOANNE DIAG BILAT HISTORY: 6 month follow-up left breast, routine screening] COMPARISON: 07/02/2017, 12/20/2016 This study was interpreted with the benefit of Computerized Aided Detection (CAD). Breast Density: SCATTERED The breast parenchyma shows scattered fibroglandular densities. Breast parenchyma level B. FINDINGS: 2-D and 3-D tomosynthesis imaging was performed in CC and MLO projections. A tiny smooth retroareolar nodule is again noted on the left just lateral to the midline best seen on CC tomosynthesis image #8. It is unchanged since 12/20/2016. No new or enlarging breast densities are seen. A breast biopsy marker is again noted on the right. Minimal benign type calcifications present. No suspicious microcalcifications have developed. IMPRESSION: Stable small left breast nodule. Follow-up left mammography in 6 months and bilateral mammography in one year is suggested. BI-RADS CATEGORY: 3 PROBABLY BENIGN FINDING(S)-SHORT INTERVAL FOLLOW-UP SUGGESTED RECOMMENDED FOLLOW-UP: 6M 6 MONTH FOLLOW-UP PQRS compliance statement: Patient information was entered into a reminder system with a target due date for the next mammogram. Mammography is a sensitive method for finding small breast cancers, but it does not detect them all and is not a substitute for careful clinical examination. A negative mammogram does not negate a clinically suspicious finding and should not result in delay in biopsying a clinically suspicious abnormality. "Our facility is accredited by the [employer] Mammography Program."
== END | disposition home or self-care (01) ==
LOC: KCIC MAMMO 12:38
PROVIDERS: ATTEND Family Medicine
DX: N63.42 Unspecified lump in left breast, subareolar (principal)
CPT/HCPCS: 77066; G0279; 77062

== ENCOUNTER → 2018-03-19 | Outpatient (CLI) | payer MEDICARE, BC ==
--- NOTE | 2018-03-19 13:19 | KCIC ---
EXAM: Lumbar spine, 2 views. HISTORY: Fusion. COMPARISON: None. FINDINGS: 2 views lumbar spine are obtained. There is instrumented posterior spinal fusion with disc space fusion device placement at L4-L5. There is grade 1 anterolisthesis this level, measuring 11 mm. There is degenerative endplate remodeling with disc space narrowing and Schmorl's node formation at L3-L4 and L5-S1. IMPRESSION: 1. Instrumented fusion at L4-L5. There is stable grade 1 anterolisthesis this level. 2. Degenerative change within the lumbar spine, primarily at L3-L4 and L5-S1. This appears minimally progressed at the L3-L4 level compared to the prior study. Electronically signed by: Krysten Verma MD (03/19/2018 1:14 PM) [place] [id number]
== END | disposition home or self-care (01) ==
LOC: KCIC 12:31
PROVIDERS: ATTEND Neurological Surgery
DX: M43.26 Fusion of spine, lumbar region (principal); M43.16 Spondylolisthesis, lumbar region; M47.896 Other spondylosis, lumbar region; M48.061 Spinal stenosis, lumbar region without neurogenic claudication; M51.47 Schmorl's nodes, lumbosacral region; M51.46 Schmorl's nodes, lumbar region
CPT/HCPCS: 72100

== ENCOUNTER → 2018-07-13 | Outpatient (CLI) | payer MEDICARE, BC ==
[~2018-07-13] MED LIST changes: -AMLO10TA6 PO; +AMLO10TA8 PO
--- NOTE | 2018-07-14 09:47 | KCIC ---
" breast diagnostic digital mammograms with 3-D tomosynthesis: Reason for examination: Follow-up nodule. Comparison is made to previous studies dated back to 12/15/2015. Right breast mammograms in CC and oblique projections were obtained with 2-D imaging and 3-D tomosynthesis imaging on a Siemens Inspiration unit and reviewed on the workstation. Interpretation was made with the benefit of CAD. The skin and nipple show no abnormalities. No abnormal axillary lymph nodes are seen. The breast parenchyma shows scattered fatty and fibroglandular density. (Breast density: Category B.) There continues to be a small circumscribed nodule anterior and slightly lateral to the nipple line in the left breast. There are no new dominant masses, suspicious calcifications or architectural distortion. Impression: No evidence of malignancy. Recommend routine screening. BI-RAD Category 2: Benign. "Our facility is accredited by the [employer] Mammography Program." This patient's information has been entered into a reminder system for the patient to be notified with the results of her examination and a target date for the next mammogram. Electronically signed by: Maggie Moreno MD (07/13/2018 2:13 PM) [id number]
== END | disposition home or self-care (01) ==
LOC: KCIC MAMMO 12:53
PROVIDERS: ATTEND Family Medicine
DX: N63.20 Unspecified lump in the left breast, unspecified quadrant (principal)
CPT/HCPCS: 77065; G0279; 77061

== ENCOUNTER → 2019-01-05 | Outpatient (CLI) | payer MEDICARE, BC ==
--- NOTE | 2019-01-05 16:36 | KCIC ---
Bilateral digital screening mammograms with 3-D tomosynthesis: Reason for examination: Routine screening. Comparison is made to previous studies dated 01/12/2018 and 12/20/2016. Bilateral mammograms in CC and oblique projections were obtained with 2-D imaging and 3-D tomosynthesis imaging on a Siemens Inspiration unit and reviewed on the workstation. Interpretation was made with the benefit of CAD. The skin and nipples show no abnormalities. No abnormal axillary lymph nodes are seen. The breast parenchyma shows scattered fatty and fibroglandular density. (Breast density: Category B.) There are no dominant masses, suspicious calcifications or architectural distortion. Biopsy clip remains present on the right. Impression: No evidence of malignancy. Recommend routine screening. BI-RAD Category 1: Negative. "Our facility is accredited by the [employer] Mammography Program." This patient's information has been entered into a reminder system for the patient to be notified with the results of her examination and a target date for the next mammogram. Electronically signed by: Maggie Moreno MD (01/05/2019 4:33 PM) [id number]
== END | disposition home or self-care (01) ==
LOC: KCIC MAMMO 12:17
PROVIDERS: ATTEND Family Medicine
DX: Z12.31 Encounter for screening mammogram for malignant neoplasm of breast (principal)
CPT/HCPCS: 77063; 77067

== ENCOUNTER → 2019-01-11 | Outpatient (CLI) | payer MEDICARE, BC ==
--- NOTE | 2019-01-12 15:50 | KCIC ---
EXAM: HAND BILAT 3V. HISTORY: Polyarthralgia, rheumatoid arthritis. COMPARISON: None. FINDINGS: There are findings consistent with erosive osteoarthritis at both fifth distal interphalangeal joints. It is moderate throughout the distal interphalangeal joints elsewhere bilaterally. The proximal interphalangeal joints are only mildly involved on the left greater than right. Metacarpophalangeal joint space narrowing is minimal, with mild osteoarthritis at the left third ray. First carpometacarpal osteoarthritis is moderate to severe on the left and mild on the right. There is an associated loose body on the left. Radiocarpal and intercarpal joint spaces are maintained. No erosions are seen. IMPRESSION: 1. 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 Osteoarthritis elsewhere is the predominant process as detailed above. No erosions are identified. Electronically signed by: Diana Raya MD (01/12/2019 3:47 PM) [facility]
== END | disposition home or self-care (01) ==
LOC: KCIC 14:09
PROVIDERS: ATTEND Internal Medicine Rheumatology
DX: M19.041 Primary osteoarthritis, right hand (principal); M19.042 Primary osteoarthritis, left hand
CPT/HCPCS: 73130

== ENCOUNTER → 2020-02-01 | Outpatient (CLI) | payer MEDICARE, BC ==
[~2020-02-01] MED LIST changes: +AMLO-187 PO; -AMLO10TA8 PO; -CALC600T4 PO; +CALC600T6 PO; -NABU500T PO; +NABU500T7 PO
--- NOTE | 2020-02-01 14:38 | KCIC ---
INDICATION: Osteoporosis screening. Postmenopausal screening COMPARISON: 12/20/2016 TECHNIQUE: Bone densitometry was performed through the distal radius and proximal femur. FINDINGS: Distal radius BMD: 0.49 T-Score: -1.4 Proximal Femur: BMD: 0.83 T-Score: -0.9 Similar to prior. IMPRESSION: 1. Distal radius falls within the osteopenic range. 2. Proximal femur falls within the on the border between lower limits of normal and osteopenic range. Electronically signed by: Curt Tse MD (02/01/2020 2:35 PM) [id number]
--- NOTE | 2020-02-02 20:07 | KCIC ---
BILATERAL SCREENING MAMMOGRAM, 3-D History: Routine screening. Comparison: Bilateral mammogram January 05, 2019. Technique: MLO and CC digital tomosynthesis (3D) images obtained. Radiologist reviewed these images on dedicated workstation. Findings: Breast Tissue Density B : There are scattered areas of fibroglandular density. Stable biopsy clip in the inner right breast. There are no dominant masses, suspicious microcalcifications or architectural distortion. IMPRESSION: No mammographic evidence of malignancy. Recommend routine screening. BI-RADS category 1: Negative. The images were reviewed with computer-aided detection. Patient information is entered into reminder system with a target due date for the next screening mammogram. Mammography is the most sensitive method for finding small breast cancers, but it does not detect them all and is not a substitute for careful clinical examination. A negative mammogram does not negate a clinically suspicious finding and should not result in delay in biopsying a clinically suspicious abnormality. "Our facility is accredited by the [employer] Mammography Program." Electronically signed by: Sukumar Vargas MD (02/02/2020 8:05 PM) [facility]
== END ==
LOC: KCIC MAMMO 12:23
PROVIDERS: ATTEND Family Medicine
DX: Z12.31 Encounter for screening mammogram for malignant neoplasm of breast (principal); M81.0 Age-related osteoporosis without current pathological fracture; M85.88 Other specified disorders of bone density and structure, other site
CPT/HCPCS: 77063; 77067; 77080; 77081

== ENCOUNTER → 2021-03-19 | Outpatient (CLI) | payer MEDICARE, BC ==
[~2021-03-19] MED LIST changes: -CALC600T6 PO; +CALC600T60 PO; +NABU500T11 PO; -NABU500T7 PO; -VALS1TAB22 PO; +VALS1TAB23 PO
--- NOTE | 2021-03-19 15:55 | KCIC ---
EXAM: MRI Left HIP DATE: 03/19/2021 1:02 PM CLINICAL INDICATION: Reason: LEFT HIP PAIN / Spl. Instructions: / History: Left hip pain, worsening and progressing in recent months. COMPARISON: None. TECHNIQUE: Multiplanar, multisequence MRI of the left hip was performed without contrast. FINDINGS: T1 marrow signal is preserved. No fracture or osteonecrosis. No left hip joint effusion. Mild trochanteric bursal distention, bursitis. Hip: Joint line: Articular cartilage preserved throughout. Labral survey: Linear high signal at the anterior superior labrum with associated subchondral ed divya. Bone marrow:No fracture or osteonecrosis. Chondral thinning anterior superior acetabulum. Gluteus: Moderate increased signal within the gluteus medias Hamstrings:Mild increased signal and thickening at the origin of the gluteus medius tendon. Iliopsoas: Tendinous attachment of the iliopsoas intact. Mild edema within the short abductors likely low-grade strain. There is also mild edema within the qu adratus femoris muscle with mild atrophy and associated narrowing of the ischiofemoral space. Gina-articular soft tissues: Negative periarticular mass lesion Limited survey of pelvis: Limited survey of the visceral contents of the pelvis within normal limits. IMPRESSION: 1. Anterior superior labral tear with associated labral irregularity and marrow edema 2. Mild left hip joint osteoarthritis. 3. Low-grade strain short adductors. 4. Edema within the quadratus femoris muscle belly with associated narrowing of the ischiofemoral sp marcus may be seen with ischiofemoral impingement. 5. Mild trochanteric bursal distention from bursitis. Electronically signed by: Wily Hameed MD (03/19/2021 3:53 PM) [id number]
== END ==
LOC: KCIC MRI 12:51
PROVIDERS: ATTEND Orthopaedic Surgery
DX: S43.432A Superior glenoid labrum lesion of left shoulder, initial encounter (principal); M16.12 Unilateral primary osteoarthritis, left hip; M71.552 Other bursitis, not elsewhere classified, left hip; X58.XXXA Exposure to other specified factors, initial encounter; Y93.89 Activity, other specified; Y92.89 Other specified places as the place of occurrence of the external cause; Y99.8 Other external cause status
CPT/HCPCS: 73721

== ENCOUNTER → 2021-04-05 | Outpatient (CLI) | payer MEDICARE, BC ==
--- NOTE | 2021-04-06 08:45 | KCIC ---
Bilateral digital screening mammograms with 3-D tomosynthesis: Reason for examination: Routine screening. Comparison is made to previous studies dated back to 12/15/2015. Bilateral mammograms in CC and oblique projections were obtained with 2-D imaging and 3-D tomosynthes is imaging on a Siemens Inspiration unit and reviewed on the workstation. Interpretation was made wit h the benefit of CAD. The skin and nipples show no abnormalities. No abnormal axillary lymph nodes are seen. The breast par enchyma shows scattered fatty and fibroglandular density. (Breast density: Category B.) There are no dominant masses, suspicious calcifications or architectural distortion. A few benign calcifications a re again seen. Biopsy clip remains present on the right. Impression: No evidence of malignancy. Recommend routine screening. BI-RAD Category 2: Benign. "Our facility is accredited by the [employer] Mammography Program." This patient's information has been entered into a reminder system for the patient to be notified wit h the results of her examination and a target date for the next mammogram. Electronically signed by: Maggie Moreno MD (04/06/2021 8:43 AM) [email or web address]
== END ==
LOC: KCIC MAMMO 10:40
PROVIDERS: ATTEND Family Medicine
DX: Z12.31 Encounter for screening mammogram for malignant neoplasm of breast (principal)
CPT/HCPCS: 77063; 77067

== ENCOUNTER → 2021-04-05 | Outpatient (CLI) | payer MEDICARE, BC ==
[~2021-04-05] MED LIST changes: +BUPIVACAINE MPF 0.5% 10 ML VIAL. INT ART ONE; +IOHEXOL 300 MG/ML 50 ML VIAL. INT ART ONE; +methylPREDNISolone ACETATE 40 MG/ML VIAL. INT ART ONE
--- NOTE | 2021-04-05 14:28 | KCIC ---
PROCEDURE: Left hip steroid injection under fluoroscopic guidance INDICATION: Left labral tear. Pain. CONTRAST: 4 cc Omnipaque 300 FINDINGS: The risks, benefits and alternatives to the procedure were discussed with the patient. A timeout was performed to confirm the patient's identity and laterality of the injection. Utilizing sterile technique, fluoroscopic guidance and local anesthesia with 1% lidocaine, the left h ip joint was accessed utilizing a 22-gauge 3.5" spinal needle. A small amount contrast was used to co nfirm the intra-articular location of the needle tip. Subsequently, a mixture containing 40 mg Kenalo g and 2 cc bupivacaine was injected. There were no immediate complications. Fluoroscopy time: 17 seconds Number of images obtained: 2 Impression: Technically successful left hip steroid injection under fluoroscopic guidance. Electronically signed by: PEDRO PABLO HUTCHISON MD (04/05/2021 2:26 PM) [id number]
== END | disposition home or self-care (01) ==
LOC: KCIC 10:45
PROVIDERS: ATTEND Orthopaedic Surgery
DX: M25.552 Pain in left hip (principal); S73.102A Unspecified sprain of left hip, initial encounter; I10 Essential (primary) hypertension; M06.9 Rheumatoid arthritis, unspecified; Z79.82 Long term (current) use of aspirin; Z79.899 Other long term (current) drug therapy; Z98.51 Tubal ligation status; Z98.890 Other specified postprocedural states; X58.XXXA Exposure to other specified factors, initial encounter; Y93.89 Activity, other specified; Y92.89 Other specified places as the place of occurrence of the external cause; Y99.8 Other external cause status
CPT/HCPCS: 20610; 77002; J1030; J3490; Q9967

== ENCOUNTER → 2021-06-29 | Outpatient (CLI) | payer MEDICARE, BC ==
[~2021-06-29] MED LIST changes: -BUPIVACAINE MPF 0.5% 10 ML VIAL. INT ART ONE; +GADOTERATE 5 MMOL/10ML VIAL. IVP ONE; -IOHEXOL 300 MG/ML 50 ML VIAL. INT ART ONE; -methylPREDNISolone ACETATE 40 MG/ML VIAL. INT ART ONE
--- NOTE | 2021-06-29 16:26 | KCIC ---
EXAMINATION: Magnetic resonance imaging (MRI) of the lumbar spine with and without contrast 06/29/2021 1:00 PM HISTORY: Lumbar radiculitis. TECHNIQUE: Multiplanar multi-weighted MRI of the lumbar spine was performed with and without intraven ous contrast using the standard lumbar spine protocol. Contrast information: Gadolinium based contrast. COMPARISON: MRI lumbar spine 12/09/2016. FINDINGS: There is 3 mm retrolisthesis of L2 on L3. There is minimum anterolisthesis of L4 on L5. Vertebral bod y heights are maintained. Modic type I endplate degenerative changes identified at L2-3 and to a degr ee at L3-L4. Posterior and interbody fusion identified at L4-L5 with bilateral pedicle screws and cj l rods. Conus medullaris terminates at L1-L2. Distal spinal cord signal intensity is normal in all se quences. Mild to moderate intramarginal osteophytosis. No acute fracture is identified. Disc desiccat ion is identified all levels of lumbar spine. Moderate to advanced disc osteophyte S1. Moderate disc height loss at L3-L4. Abdominal aorta is normal in caliber. No suspicious retroperitoneal abnormality . No suspicious enhancement. L1-L2: The disc is normal in configuration. There is mild facet arthropathy. There is no neuroforamin al stenosis. There is no spinal canal stenosis. L2-L3: There is a circumferential disc bulge with left central disc extrusion extending to the left s ubarticular zone. Moderate facet of the ligamentum flavum infolding. Severe left and moderate to toño re right neuroforaminal stenosis. Moderate spinal canal stenosis. L3-L4: There is a circumferential disc bulge. Moderate facet arthropathy. Right hemilaminectomy aguiar es are identified. Ligament of flavum infolding asymmetric to the left. There is narrowing of the lef t lateral recess. Severe left and moderate right neuroforaminal stenosis. Mild spinal canal stenosis. L4-L5: There is uncovering of the disc secondary to anterolisthesis with left central disc extrusion extending cranially to the infra pedicle level of L4. Moderate severe facet arthropathy. Moderate lef t neuroforaminal stenosis. Mild spinal canal stenosis. L5-S1: No significant disc herniation. No neuroforaminal or spinal canal stenosis. IMPRESSION: Posterior and interbody fusion identified at L4-L5 with moderate to advanced degenerative changes of the lumbar spine as detailed above. Electronically signed by: Yu Birmingham MD (06/29/2021 4:23 PM) [facility]IL
== END ==
LOC: KCIC MRI 12:38
PROVIDERS: ATTEND Orthopaedic Surgery
DX: M47.26 Other spondylosis with radiculopathy, lumbar region (principal); M51.26 Other intervertebral disc displacement, lumbar region; M48.061 Spinal stenosis, lumbar region without neurogenic claudication
CPT/HCPCS: 72158; 82565; A9575

== ENCOUNTER → 2021-07-09 | Outpatient (CLI) | payer MEDICARE, BC ==
[~2021-07-09] MED LIST changes: +BUPIVACAINE MPF 0.5% 10 ML VIAL. INT ART ONE; -GADOTERATE 5 MMOL/10ML VIAL. IVP ONE; +LIDOCAINE 1% Multi-Dose 20 ML VIAL. ID ONE; +TRIAMCINOLONE PRES.FREE 40 MG/ML VIAL. INT ART ONE
--- NOTE | 2021-07-10 07:47 | KCIC ---
EXAM: Left hip joint injection WITH Fluoroscopic guidance DATE: 07/09/2021 1:26 PM CLINICAL HISTORY: Reason: CHRONIC LT HIP PAIN / Spl. Instructions: FT :03, 2 IMG, 4ML BUPIVACAINE, 80 ML KENALOG / History: COMPARISON: None pertinent TECHNIQUE: The patient was informed of the indications and alternatives for this procedure as well as risks and benefits. No immediate contraindication identified. The patient provided informed, written consent. Laterality was confirmed by the entire team following a time out. Following initial Left hip joint localization, a suitable area was sterilely prepped and draped. Loca l anesthesia was administered with 1% xylocaine. With intermittent fluoroscopic observation, a 22-gau ge spinal needle was advanced into the Left hip joint sheath/capsule with confirmation of intra-synov ial position with infusion of less than 3 cc room air. Subsequent infusion 80 mg Kenalog and 4 mL bup ivacaine 0.5 percent. Hemostasis with local pressure. Local clinical exam negative for immediate comp lication. Patient informed re local potential signs or symptoms that may indicate need to return to ER/Ordering physician for further evaluation. Patient informed re precautionary measures after intra-synovial in jection of anesthetic. Patient informed re potential for short term increase local symptomatology due to steroid flare. Patient expressed understanding. Performing Physicians: Dr. Barrett Hameed Blood Loss: 0 cc Pre-procedural Pain Scale: 6 Post-procedural Pain Scale: 4 Total Fluoroscopy time: 3 seconds Total spot images taken: 2 IMPRESSION: Successful intra-synovial injection Left hip joint with steroid and anesthetic per clinical request. Electronically signed by: Wily Hameed MD (07/09/2021 2:40 PM) [id number]
== END | disposition home or self-care (01) ==
LOC: KCIC 12:59
PROVIDERS: ATTEND Orthopaedic Surgery Sports Medicine
DX: G89.29 Other chronic pain (principal); M25.552 Pain in left hip; I10 Essential (primary) hypertension; M06.9 Rheumatoid arthritis, unspecified; Z98.51 Tubal ligation status; Z98.890 Other specified postprocedural states; Z79.899 Other long term (current) drug therapy; Z79.82 Long term (current) use of aspirin; Z88.8 Allergy status to other drugs, medicaments and biological substances
CPT/HCPCS: 20610; 77002; J3301; J3490